=== PATIENT | female | born 1960 | race Caucasian/White ===

== ENCOUNTER 2021-06-23 18:20 | Emergency (ER) | payer OTHER ==
[2021-06-23 19:06] VITALS: TEMP 98.2
--- NOTE | 2021-06-23 19:40 | XR ---
EXAMINATION TYPE: XR chest 2V DATE OF EXAM: 06/23/2021 COMPARISON: NONE HISTORY: Headache and dizziness TECHNIQUE: Frontal and lateral views of the chest are obtained. FINDINGS: There is no focal air space opacity, pleural effusion, or pneumothorax seen. The cardiac silhouette size is within normal limits. The osseous structures are intact. IMPRESSION: No acute cardiopulmonary process.
[2021-06-23 20:58] LABS: INR 1.1 (<1.2); Prothrombin Time 11.3 sec (9.0-12.0)
[2021-06-23 21:00] LABS: Basophils % (A) 1 %; Eosinophils % (A) 0 %; HCT 40.5 % (34.0-46.0); HGB 13.9 gm/dL (11.4-16.0); Lymphocytes # (A) 0.9 k/uL (1.0-4.8); Lymphocytes % (A) 27 %; MCH 34.7 pg (25.0-35.0); MCHC 34.3 g/dL (31.0-37.0); MCV 101.2 fL (80.0-100.0); Macrocytosis Slight; Mean Platelet Volume 8.1; Monocytes # (A) 0.2 k/uL (0-1.0); Monocytes % (A) 6 %; Neutrophils # (A) 2.1 k/uL (1.3-7.7); Neutrophils % (A) 64 %; RBC 4.01 m/uL (3.80-5.40); RDW 14.1 % (11.5-15.5); WBC 3.3 k/uL (3.8-10.6)
[2021-06-23 21:05] LABS: ALT 43 U/L (4-34); AST 54 U/L (14-36); African American GFR (CKD) >90 (>60 ml/min/1.73 sqM); Albumin 4.6 g/dL (3.5-5.0); Alkaline Phosphatase 50 U/L (38-126); Anion Gap 13 mmol/L; Blood Urea Nitrogen 10 mg/dL (7-17); Calcium 9.3 mg/dL (8.4-10.2); Carbon Dioxide 23 mmol/L (22-30); Chloride 101 mmol/L (98-107); Glucose 109 mg/dL (74-99); Non-African American GFR(CKD) >90 (>60 ml/min/1.73 sqM); Potassium 3.7 mmol/L (3.5-5.1); Sodium 137 mmol/L (137-145); Total Bilirubin 2.1 mg/dL (0.2-1.3); Total Protein 8.2 g/dL (6.3-8.2)
--- NOTE | 2021-06-23 21:10 | ED ---
General Adult HPI - General Chief complaint: Dizziness Stated complaint: Light headed, dizziness, hypertension Time Seen by Provider: 06/23/21 19:51 Source: patient Mode of arrival: wheelchair Limitations: no limitations - History of Present Illness Initial comments: Patient presents to the ED (patient states that she got a ride here today) stating that she has felt dizzy and lightheaded since yesterday. Patient states that her symptoms began as she was walking out of the auditorium from her granddaughter's graduation. Patient states that she became "weak and shaky" at that time. Patient states that her symptoms improved by the time she went to bed, but she states that she has felt dizzy at times today as well. Patient states that her dizziness is worse with "motion". Patient also states that she has a mild headache at the top of her head. Patient denies trauma or injury, LOC, fever or chills, focal numbness/weakness/neuro deficit, visual changes, speech difficulty, neck pain or stiffness, chest pain or pressure, dyspnea, cough or cold symptoms, palpitations, syncope, abdominal pain, nausea/vomiting/diarrhea, bloody or melanotic stool, dysuria or urinary symptoms, leg or calf swelling or pain, or any other symptoms or complaints. - Related Data Allergies Allergy/AdvReac Type Severity Reaction Status Date / Time lisinopril AdvReac Nausea Verified 06/23/21 19:06 Review of Systems ROS Statement: Those systems with pertinent positive or pertinent negative responses have been documented in the HPI. ROS Other: All systems not noted in ROS Statement are negative. Past Medical History Additional Past Medical History / Comment(s): History of alcoholism General Exam Limitations: no limitations General appearance: alert, in no apparent distress Head exam: Present: atraumatic, normocephalic Eye exam: Present: normal appearance, PERRL, EOMI. Absent: nystagmus ENT exam: Present: mucous membranes moist, TM's normal bilaterally Neck exam: Present: other (Trachea is in midline). Absent: tenderness, meningismus Respiratory exam: Present: normal lung sounds bilaterally. Absent: respiratory distress, wheezes, rales, rhonchi, stridor Cardiovascular Exam: Present: regular rate, normal rhythm, normal heart sounds, other (Normal radial pulses bilaterally) GI/Abdominal exam: Present: soft. Absent: distended, tenderness, guarding Extremities exam: Absent: tenderness, pedal edema, calf tenderness Neurological exam: Present: alert, oriented X3, CN II-XII intact. Absent: motor sensory deficit Psychiatric exam: Present: normal affect, normal mood Skin exam: Present: warm, dry, intact, normal color Course Vital Signs 06/23/21 06/23/21 06/23/21 19:01 20:24 21:03 Temperature 98.2 F Pulse Rate 94 98 90 Respiratory 16 18 18 Rate Blood Pressure 164/85 177/108 168/109 O2 Sat by Pulse 100 97 99 Oximetry 06/23/21 06/23/21 06/23/21 22:00 22:42 23:45 Temperature Pulse Rate 96 87 85 Respiratory 18 18 16 Rate Blood Pressure 167/104 176/98 174/88 O2 Sat by Pulse 99 98 95 Oximetry - Reevaluation(s) Reevaluation #1: 06/23/21 23:47 Patient states that her dizziness has now improved, and she was able to ambulate in the ED without any difficulty. Patient and son are aware the patient's test results, and patient feels comfortable being discharged home with her son at this time. Patient was counseled about dizziness and elevated blood pressure. Patient was instructed to follow up closely with her primary care provider. Patient was clearly explained return and follow-up instructions, and she was instructed to have a low threshold for return to the emergency department should her symptoms worsen. Patient feels comfortable with this plan. EKG Findings - EKG Comments: EKG Findings:: Normal sinus rhythm, occasional PVCs, occasional supraventricular premature complexes, ventricular rate of 97 bpm, normal [place] and QRS intervals, normal QT interval, anterior T-wave abnormality Medical Decision Making - Medical Decision Making Patient denies having any chest pain, dyspnea or palpitations, and her troponin is negative. Other than mildly elevated LFTs (patient states that she has a history of alcoholism), the patient's labs are fairly unremarkable. Patient's chest x-ray and head CT are also fairly unremarkable. Patient has been ambulatory in the ED without difficulty. Patient's blood pressure has been elevated while in the ED, which perhaps may be the etiology of her symptoms. Patient was instructed to, and agrees to, follow-up closely with a primary care provider for further evaluation and management of her blood pressure. I do not suspect an emergent medical condition at this time. Will discharge patient home with her son at this time. - Lab Data Result diagrams: 06/23/21 20:26 06/23/21 20:26 Lab Results 06/23/21 06/23/21 06/23/21 Range/Units 20:26 20:26 20:26 WBC 3.3 L (3.8-10.6) k/uL RBC 4.01 (3.80-5.40) m/uL Hgb 13.9 (11.4-16.0) gm/dL Hct 40.5 (34.0-46.0) % MCV 101.2 H (80.0-100.0) fL MCH 34.7 (25.0-35.0) pg MCHC 34.3 (31.0-37.0) g/dL RDW 14.1 (11.5-15.5) % Plt Count 95 L (150-450) k/uL MPV 8.1 Neutrophils % 64 % Lymphocytes % 27 % Monocytes % 6 % Eosinophils % 0 % Basophils % 1 % Neutrophils # 2.1 (1.3-7.7) k/uL Lymphocytes # 0.9 L (1.0-4.8) k/uL Monocytes # 0.2 (0-1.0) k/uL Eosinophils # 0.0 (0-0.7) k/uL Basophils # 0.0 (0-0.2) k/uL Manual Slide Review Performed Macrocytosis Slight PT 11.3 (9.0-12.0) sec INR 1.1 (<1.2) Sodium 137 (137-145) mmol/L Potassium 3.7 (3.5-5.1) mmol/L Chloride 101 (98-107) mmol/L Carbon Dioxide 23 (22-30) mmol/L Anion Gap 13 mmol/L BUN 10 (7-17) mg/dL Creatinine 0.64 (0.52-1.04) mg/dL Est GFR (CKD-EPI)AfAm >90 (>60 ml/min/1.73 sqM) Est GFR (CKD-EPI)NonAf >90 (>60 ml/min/1.73 sqM) Glucose 109 H (74-99) mg/dL Calcium 9.3 (8.4-10.2) mg/dL Total Bilirubin 2.1 H (0.2-1.3) mg/dL AST 54 H (14-36) U/L ALT 43 H (4-34) U/L Alkaline Phosphatase 50 (38-126) U/L Troponin I (0.000-0.034) ng/mL Total Protein 8.2 (6.3-8.2) g/dL Albumin 4.6 (3.5-5.0) g/dL 06/23/21 Range/Units 20:26 WBC (3.8-10.6) k/uL RBC (3.80-5.40) m/uL Hgb (11.4-16.0) gm/dL Hct (34.0-46.0) % MCV (80.0-100.0) fL MCH (25.0-35.0) pg MCHC (31.0-37.0) g/dL RDW (11.5-15.5) % Plt Count (150-450) k/uL MPV Neutrophils % % Lymphocytes % % Monocytes % % Eosinophils % % Basophils % % Neutrophils # (1.3-7.7) k/uL Lymphocytes # (1.0-4.8) k/uL Monocytes # (0-1.0) k/uL Eosinophils # (0-0.7) k/uL Basophils # (0-0.2) k/uL Manual Slide Review Macrocytosis PT (9.0-12.0) sec INR (<1.2) Sodium (137-145) mmol/L Potassium (3.5-5.1) mmol/L Chloride (98-107) mmol/L Carbon Dioxide (22-30) mmol/L Anion Gap mmol/L BUN (7-17) mg/dL Creatinine (0.52-1.04) mg/dL Est GFR (CKD-EPI)AfAm (>60 ml/min/1.73 sqM) Est GFR (CKD-EPI)NonAf (>60 ml/min/1.73 sqM) Glucose (74-99) mg/dL Calcium (8.4-10.2) mg/dL Total Bilirubin (0.2-1.3) mg/dL AST (14-36) U/L ALT (4-34) U/L Alkaline Phosphatase (38-126) U/L Troponin I <0.012 (0.000-0.034) ng/mL Total Protein (6.3-8.2) g/dL Albumin (3.5-5.0) g/dL - Radiology Data Chest x-ray: No acute cardiopulmonary process. Noncontrast head CT: No acute intracranial hemorrhage or midline shift. There is mild diffuse cerebral atrophy and acute right sphenoid sinus disease noted. Disposition Clinical Impression: Dizziness Disposition: HOME SELF-CARE Condition: Stable Instructions (If sedation given, give patient instructions): Dizziness (ED) Additional Instructions: Return to the ER immediately should you develop new or worsening pain, increased dizziness, fainting, shortness of breath, a fever, numbness or weakness, vomiting, or new or worsening symptoms. Follow up closely with your primary care provider. Is patient prescribed a controlled substance at d/c from ED?: No Referrals: Bi Reid MD [Primary Care Provider] - 1-2 days Time of Disposition: 23:52
--- NOTE | 2021-06-23 21:35 | CT ---
EXAMINATION TYPE: CT brain wo con DATE OF EXAM: 06/23/2021 HISTORY: Hypertension, headaches, and dizziness. CT DLP: 1158.4 mGycm. Automated Exposure Control for Dose Reduction was Utilized. TECHNIQUE: CT scan of the head is performed without contrast. COMPARISON: None. FINDINGS: There is no acute intracranial hemorrhage or midline shift identified. There is mild diff use ventricular and sulcal prominence consistent with diffuse age-related cerebral atrophy. Lei-whit e matter differentiation fairly well maintained. Patchy cerumen in the deep left external auditory ca nal. Dependent fluid filling the right sphenoid sinus otherwise the paranasal sinuses are clear. The globes are intact bilaterally. IMPRESSION: No acute intracranial hemorrhage or midline shift. There is mild diffuse cerebral atrop hy and acute right sphenoid sinus disease noted.
[2021-06-23] MEDS ORDERED: SODIUM CHLORIDE 0.9% 1,000 ML IV ONE (21:48)
[2021-06-23] MEDS ORDERED: MECLIZINE 12.5 MG TAB PO STA (21:49)
[2021-06-23] MEDS ORDERED: diphenhydrAMINE 50 MG/ML 1 ML VIAL IVP STA (21:49)
[2021-06-23 22:01] LABS: Platelet Count 95 k/uL (150-450)
[2021-06-23 23:46] VITALS: BP 174/88; PULSE 85; RESP 16
== END 2021-06-24 00:16 | disposition home or self-care (01) ==
LOC: EC 18:20
DX: R42 Dizziness and giddiness (principal); Z88.8 Allergy status to other drugs, medicaments and biological substances
CPT/HCPCS: 36415; 93005; 80053; 84484; 85025; 85610; 71046; 70450; 99284; 96374; J1200

== ENCOUNTER 2023-01-02 05:42 | Day surgery (SDC) | payer OTHER ==
--- NOTE | 2023-01-01 08:45 | P.HPOR ---
History of Present Illness H&P Date: 01/01/23 Chief Complaint: Left shoulder pain The patient is a 62-year-old female who presents with left shoulder pain after an injury on 11/23/2022. She notes she passed out fell on her left shoulder. Initially she was seen in the emergency room was placed in a sling. She denies previous injury. She's having pain with any attempted use of the left arm. Review of Systems Negative except as in HPI Past Medical History Past Medical History: COPD, Hypertension, Thyroid Disorder Additional Past Medical History / Comment(s): 12/06/22 SYNCOPAL EPISODE , FELL AND BROKE HER LEFT SHOULDER. History of alcoholism. History of Any Multi-Drug Resistant Organisms: None Reported Additional Past Surgical History / Comment(s): CATARACT LEFT 11/27/22. Past Anesthesia/Blood Transfusion Reactions: No Reported Reaction Additional Past Anesthesia/Blood Transfusion Reaction / Comment(s): NO GENERAL ANESTHESIA. Past Psychological History: Depression Smoking Status: Current every day smoker Past Alcohol Use History: None Reported Additional Past Alcohol Use History / Comment(s): SMOKED SINCE TEEN, .5 TO 1PPD. Past Drug Use History: None Reported Additional Drug Use History / Comment(s): CBD. - Past Family History Mother Family Medical History: No Reported History Medications and Allergies Home Medications Medication Instructions Recorded Confirmed Type Albuterol Sulfate [Ventolin HFA] 1 puff IN DIRECTED PRN 12/29/22 12/29/22 History Aspirin [Adult Low Dose Aspirin EC] 81 mg PO DAILY 12/29/22 12/29/22 History Fluticasone Propion/Salmeterol 1 puff INHALATION BID 12/29/22 12/29/22 History [Advair 250-50 Diskus] Ibuprofen 800 mg PO BID PRN 12/29/22 12/29/22 History Levothyroxine Sodium 100 mcg PO QAM 12/29/22 12/29/22 History Losartan Potassium 100 mg PO QAM 12/29/22 12/29/22 History Magnesium 400 mg PO QAM 12/29/22 12/29/22 History Metoprolol Tartrate 25 mg PO BID 12/29/22 12/29/22 History Montelukast Sodium 10 mg PO HS 12/29/22 12/29/22 History Nicotine 21Mg/24Hr Patch [Habitrol] 1 patch TOPICAL Q24H 12/29/22 12/29/22 History Tiotropium 18 Mcg/Puff [Spiriva] 1 puff INHALATION QAM 12/29/22 12/29/22 History buPROPion HCL [buPROPion HCL Xl] 150 mg PO QAM 12/29/22 12/29/22 History traMADol HCL 50 mg PO BID 12/29/22 12/29/22 History Allergies Allergy/AdvReac Type Severity Reaction Status Date / Time Fish Containing Products Allergy Rash/Hives, Verified 12/29/22 15:17 [Fish] SWELLING lisinopril AdvReac Nausea Verified 06/23/21 19:06 Physical Examination - Shoulder left Appearance: ecchymosis, swelling Tenderness with palpation: anterior Pain: other (Pain with any attempted range of motion) Results The patient is a well-developed well-nourished female approximately 5 foot 10, 185 pounds of mesomorphic habitus. HEENT exam is nonfocal, neck supple. She has significant anterior swelling and ecchymosis about the left shoulder. She is nontender about the acromioclavicular and sternoclavicular joints. She's tender over the proximal humerus. She has pain with any attempted range of motion of the left shoulder. She is not in a month left elbow and wrist. Her distal neurovascular appears intact in the left upper extremity. - Diagnostic results Shoulder x-ray: image reviewed (2 views of the left shoulder obtaining in the office show a displaced proximal humerus fracture with significant comminution.) Assessment and Plan Assessment: Left displaced three-part proximal humerus fracture Plan: I talked the patient at length regarding her condition along with treatment options. After thorough discussion she opted to proceed with surgery. Surgical options to include attempted open reduction and internal fixation with possible bone grafting versus reverse total shoulder arthroplasty were discussed. She opted to proceed with a left reverse total shoulder arthroplasty. Risks and benefits were discussed at length in layman's terms. We will likely keep the patient for 23 hold postoperatively.
[~2023-01-02 05:42] MED LIST: ACETAMINOPHEN TAB 500 MG TAB PO PRN; MELOXICAM 7.5 MG TAB PO PRN; TRANEXAMIC 1,000 MG/100ML-NACL 1,000 MG in SALINE 1 100ML.BAG IVPB PRN
[2023-01-02] MEDS ORDERED: ONDANSETRON 4 MG/2 ML VIAL IVP ONE (06:06)
[2023-01-02] MEDS ORDERED: DEXAMETHASONE SOD PHOSPHATE 4 MG/ML 1 ML VIAL IV ONE (06:06)
[2023-01-02] MEDS ORDERED: SCOPOLAMINE 1 MG/72 HR PATCH TRANSDERM ONE (06:06)
[2023-01-02] MEDS: LACTATED RINGERS 1,000 ML IV SCH (06:59)
[2023-01-02] MEDS ORDERED: HYDROmorphone 0.5 MG/0.5 ML SYRINGE IVP PRN ×2 (07:00→09:41)
[2023-01-02] MEDS ORDERED: MIDAZOLAM 2 MG/2 ML VIAL IV PRN (07:00)
[2023-01-02] MEDS ORDERED: MIDAZOLAM 2 MG/2 ML VIAL IVP ONE (07:05)
[2023-01-02] MEDS ORDERED: fentaNYL (PF) 50 MCG/ML 2 ML AMP IVP ONE (07:05)
--- NOTE | 2023-01-02 07:21 | P.ANPRN ---
Procedure Note - Anesthesia - Nerve Block Performed Left Interscalene Single Time Out Performed: Yes Date of Procedure: 01/02/23 Procedure Start Time: 07:04 Procedure Stop Time: 07:10 Location of Patient: PreOp Indication: Acute Post-Operative Pain, Requested by Surgeon Sedation Type: Sedate with meaningful contact maintained Preparation: Sterile Prep Position: Supine Needle Types: Pajunk Needle Gauge: 21 Ultrasound used to visualize needle placement: Yes Ultrasound used to observe medication spread: Yes Injectate: 0.5% Ropivacaine (see comment for volume) (15 ml + 15 ml NS + 4 mg Dexamethasone) Blood Aspirated: No Pain Paresthesia on Injection Noted: No Resistance on Injection: Normal Image Stored and Saved: Yes Events: Uneventful and Well Tolerated
[2023-01-02] MEDS ORDERED: PROPOFOL 10 MG/ML 20 ML VIAL IV ONE (07:31)
[2023-01-02] MEDS ORDERED: SUCCINYLCHOLINE CHLORIDE 200 MG/10 ML VIAL IV ONE (07:31)
[2023-01-02] MEDS ORDERED: NEOSTIGMINE 1 MG/ML 10 ML VIAL ONE (07:31)
[2023-01-02] MEDS ORDERED: DEXAMETHASONE SOD PHOSPHATE 4 MG/ML 1 ML VIAL ONE (07:31)
[2023-01-02] MEDS ORDERED: ROPIVACAINE 5 MG/ML 30 ML VIAL ONE (07:31)
[2023-01-02] MEDS ORDERED: MIDAZOLAM 2 MG/2 ML VIAL ONE (07:31)
[2023-01-02] MEDS ORDERED: GLYCOPYRROLATE 0.2 MG/ML 2 ML VIAL ONE (07:31)
[2023-01-02] MEDS ORDERED: ROCURONIUM 10 MG/ML (5 ML VIAL) IV ONE (07:31)
[2023-01-02] MEDS ORDERED: fentaNYL (PF) 50 MCG/ML 2 ML AMP ONE (07:31)
[2023-01-02] MEDS ORDERED: LIDOCAINE 4% LTA KIT (4 ML) TOPICAL ONE (07:31)
[2023-01-02] MEDS ORDERED: ePHEDrine 50 MG/ML 1 ML VIAL ONE (07:31)
[2023-01-02] MEDS ORDERED: PHENYLEPHRINE 10 MG/ML 5 ML VIAL ONE (07:31)
[2023-01-02] MEDS ORDERED: LIDOCAINE 1% INJ 10MG/ML (20 ML MDV) ONE (07:31)
[2023-01-02] MEDS ORDERED: ceFAZolin 1,000 MG in SODIUM CHLORIDE 0.9% 1,000 ML IRRIGATION ONE (08:12)
[2023-01-02] MEDS ORDERED: SENNOSIDES-DOCUSATE SODIUM 1 EACH TAB PO PRN (09:41)
[2023-01-02] MEDS ORDERED: HYDROmorphone 1 MG/ML 1 ML SYRINGE IVP PRN (09:41)
[2023-01-02] MEDS ORDERED: HYDROcodone/APAP 5-325MG 1 EACH TAB PO PRN (09:41)
[2023-01-02] MEDS ORDERED: hydrOXYzine pamoate 25 MG CAP PO PRN (09:41)
--- NOTE | 2023-01-02 10:00 | P.OP ---
Date of Procedure: 01/02/23 Preoperative Diagnosis: Displaced/comminuted left 3 part proximal humerus fracture Postoperative Diagnosis: Same Procedure(s) Performed: Left reverse total shoulder arthroplasty Implants: Depuy Delta Xtend size 10/long stem/size 1 cemented humeral stem, 38+9 articular surface, 38 standard glenosphere, standard base plate. Anesthesia: sapphire MEEHAN Surgeon: Matt Gonzalez Pathology Laboratory Director #1: Won Rausch Estimated Blood Loss (ml): 100 Pathology: none sent Condition: stable Disposition: PACU Indications for Procedure: The patient's a 62-year-old female who presents after falling injuring her left shoulder. She was noted have a displaced/comminuted left 3 part proximal humerus fracture. A discussion of the risks and benefits of operative intervention versus attempted conservative measures with me with the patient. She opted to proceed with surgery. Operative options to include attempted open reduction and internal fixation versus reverse total shoulder arthroplasty were discussed. She opted to proceed with reverse total shoulder arthroplasty. Specific risks of surgery to include infection, neurovascular injury, development of blood clots, possible nonunion, possible instability, possible component loosening/failure need for subsequent procedures was discussed. Informed consent was obtained. Operative Findings: As below Description of Procedure: The patient was brought to the operating room, and after induction of general anesthesia was placed in a beachchair position. The bony prominences were appropriately padded. The left upper extremity was prepped and draped in normal fashion. The bony outlines the coracoid process, distal clavicle, and acromion were outlined with a skin marker. A pulse centimeter deltopectoral incision was made lateral to the coracoid process. Skin was incised sharply. Subcutaneous tissues were divided bluntly. Electrocautery was used for hemostasis. The cephalic vein was identified and gently retracted laterally with the deltoid. The deltopectoral was bluntly developed. Subdeltoid adhesions were then released. The self-retaining retractor was placed. The conjoined tendon was retracted medially and the deltoid laterally. The biceps was identified. Its sheath was opened. A biceps tenotomy was performed along the remaining tendon did retract distally. The tuberosities were identified and the rotator interval was opened. The greater and lesser tuberosities were freed intact with #2 Ethibond suture. The humeral head fragment was removed. The glenoid was then exposed. An anterior and posterior retractors placed. The labrum was released from the 6-12 o'clock position. Remaining biceps was removed as well. A guidepin was placed in the inferior aspect of the glenoid with the guide slightly tilting inferior. The reamer was used down to a bleeding bony surface. The central peg hole was drilled. The standard baseplate was inserted with good purchase. Inferior, superior, and posterior locking screws the appropriate length were placed. Good purchase was obtained. The 38 mm glenosphere was inserted over a guidewire. This was fully seated. Care was taken to avoid any soft tissue interposition. Attention was then paid towards preparing the proximal humerus. The canal was reamed by hand up to a size 10. A trial size 10 long stem was placed at the appropriate height utiliz ing the proximal clamp. I planned on 30 of external rotation. Trial reduction was obtained with a 38 mm + pain articular surface. The shoulder was taken through range of motion. It was felt to be stable in flexion and extension with internal and external rotation. I felt there was adequate baptist of soft tissue tension judging off the conjoined tendon. The shoulder was gently dislocated. The trial components were then removed. The final size 10 long stem cemented seated and held in place with the clamp. After the cement had sufficiently hardened, a 38+9 trial articular surface was placed. The shoulder again was gently reduced and taken through range of motion. Again it was felt to be stable in all planes. The trial articular surface was removed and the final one was gently impacted. Pulsatile lavage was utilized. The greater and lesser tuberosities were then reattached to each other and the proximal humerus utilizing #2 Ethibond suture. The deltopectoral interval was closed with interrupted 2-0 Vicryl sutures. The skin was reapproximated with 3-0 subcuticular Prolene suture. Steri-Strips were applied. A sterile dressing was applied. A sling was placed. The patient was awoken from general anesthesia and transferred to recovery room in good condition. Blood loss was estimated at 100 mL. No complications were incurred. Sponge and needle counts were correct at the end the case. Won BISHOP assisted during the major components of the case to include exposure, glenoid and humeral preparation, implantation, and closure.
[2023-01-02] MEDS ORDERED: LACTATED RINGERS 1,000 ML IV ONE (10:13)
--- NOTE | 2023-01-02 10:39 | XR ---
EXAMINATION TYPE: XR shoulder limited LT DATE OF EXAM: 01/02/2023 10:30 AM INDICATION: Patient age:Female; 62 years old; Reason for study: s/p reverse left total shoulder arthroplasty; COMPARISON: Left shoulder radiograph 12/26/2022 TECHNIQUE: The left shoulder was examined in single frontal projection. FINDINGS: Postsurgical changes from reverse left total shoulder arthroplasty. Hardware appears intact with appr opriate alignment. There is surrounding soft tissue gas and edema. Adjacent osseous fragments involvi ng the left proximal humerus from prior fracture. No new fracture or dislocation. The remaining porti ons of the visualized chest are unremarkable. IMPRESSION: Postsurgical changes from a reverse left total shoulder arthroplasty. Hardware appears intact with ap propriate alignment on this single projection.
[2023-01-02 13:02] LABS: Basophils % (A) 0 %; Eosinophils % (A) 0 %; HCT 30.6 % (34.0-46.0); HGB 9.9 gm/dL (11.4-16.0); Hypochromasia Slight; Lymphocytes # (A) 0.6 k/uL (1.0-4.8); Lymphocytes % (A) 12 %; MCH 32.4 pg (25.0-35.0); MCHC 32.5 g/dL (31.0-37.0); MCV 99.7 fL (80.0-100.0); Mean Platelet Volume 8.2; Monocytes # (A) 0.1 k/uL (0-1.0); Monocytes % (A) 2 %; Neutrophils # (A) 4.5 k/uL (1.3-7.7); Neutrophils % (A) 86 %; RBC 3.07 m/uL (3.80-5.40); RDW 14.2 % (11.5-15.5); WBC 5.2 k/uL (3.8-10.6)
[2023-01-02 13:48] LABS: Platelet Count 95 k/uL (150-450)
[2023-01-02] MEDS: traMADol 50 MG TAB PO SCH ×2 (15:56→21:05)
[2023-01-02] MEDS: HYDROcodone/APAP 5-325MG 1 EACH TAB PO PRN ×2 (15:56→23:36)
[2023-01-02] MEDS: SYMBICORT 80-4.5 MCG INHALER INHALATION SCH (20:41)
[2023-01-02] MEDS ORDERED: MONTELUKAST 10 MG TAB PO SCH (21:00)
[2023-01-02] MEDS: METOPROLOL TARTRATE 25 MG TAB PO SCH (21:05)
[2023-01-03] MEDS ORDERED: LEVOTHYROXINE 100 MCG TAB PO SCH (06:30)
[2023-01-03] MEDS: LACTATED RINGERS 1,000 ML IV SCH (06:32)
[2023-01-03] MEDS: traMADol 50 MG TAB PO SCH (07:59)
[2023-01-03] MEDS: HYDROcodone/APAP 5-325MG 1 EACH TAB PO PRN ×2 (07:59→13:18)
[2023-01-03] MEDS: METOPROLOL TARTRATE 25 MG TAB PO SCH (08:00)
[2023-01-03] MEDS: IPRATROPIUM 0.5 MG/2.5 ML NEBU INHALATION SCH ×2 (08:30→11:37)
[2023-01-03] MEDS: SYMBICORT 80-4.5 MCG INHALER INHALATION SCH (08:30)
[2023-01-03 08:36] VITALS: BP 168/86; RESP 14; TEMP 98.1
[2023-01-03 08:58] VITALS: PULSE 68
[2023-01-03] MEDS ORDERED: NICOTINE 21MG/24HR PATCH TRANSDERM SCH (09:00)
[2023-01-03] MEDS ORDERED: ASPIRIN 81 MG PO SCH (09:00)
[2023-01-03] MEDS ORDERED: MAGNESIUM OXIDE 400 MG TAB PO SCH (09:00)
[2023-01-03] MEDS ORDERED: ASPIRIN 325 MG TAB PO SCH (09:00)
[2023-01-03] MEDS ORDERED: buPROPion XL 150 MG TAB.ER.24H PO SCH (09:00)
[2023-01-03] MEDS ORDERED: LOSARTAN 50 MG TAB PO SCH (09:00)
--- NOTE | 2023-01-03 10:55 | P.PN ---
Subjective Progress Note Date: 01/03/23 Principal diagnosis: Left displaced three-part proximal humerus fracture Left shoulder pain Patient seen and examined this morning. Patient is sitting up in chair with left arm in sling and elevated on pillows. She does note some swelling to the left hand, denies any numbness or tingling. Surgical dressing is CDI. Patient reports her pain is managed on current regimen and has been utilizing ice packs. She states she is comfortable with going home today. She denies any need for homecare. No acute concerns at this time. Objective - Vital Signs Vital signs: Vital Signs Temp 98.1 F 01/03/23 07:16 Pulse 68 01/03/23 08:48 Resp 14 01/03/23 07:16 BP 168/86 01/03/23 07:16 Pulse Ox 100 01/03/23 07:16 FiO2 Intake & Output 01/02/23 01/03/23 01/03/23 18:59 06:59 18:59 Intake Total 901 Output Total 100 Balance 801 Weight 81.5 kg Intake: IV 901 Output: Estimated Blood Loss 100 Other: # Voids 2 2 - Exam Inspection: Surgical incision over the left shoulder. Surgical dressing is clean dry and intact with a sling present on the left upper extremity. Sensation: Sensation is equal, symmetric, bilaterally intact throughout the upper and lower extremities Palpation: Nontender to palpation throughout the right upper and lower extremities and throughout spine exam. There is tender to palpation over the left shoulder and elbow due to surgical procedure Range of motion: Patient does have full range of motion of the right upper and lower extremities on exam. Patient has limited range of motion to the left shoulder and left elbow due to pain and stiffness secondary to surgical procedure. Motor: 5/5 in all major motor groups in the right upper and lower extremities. 4-/5 in left shoulder abduction and adduction, 4-/5 in left elbow flexion and extension due to pain and stiffness, 4+/5 in left engineering mgr Special tests: Negative Homans bilaterally. Negative Sadiq bilaterally. Negative clonus bilaterally. Neurovascular: Radial pulse intact, 2+ bilaterally. Cap refill under 3 seconds in digits upper extremities. - Labs CBC & Chem 7: 01/02/23 12:09 Labs: Abnormal Lab Results - Last 24 Hours (Table) 01/02/23 Range/Units 12:09 RBC 3.07 L (3.80-5.40) m/uL Hgb 9.9 L (11.4-16.0) gm/dL Hct 30.6 L (34.0-46.0) % Plt Count 95 L (150-450) k/uL Lymphocytes # 0.6 L (1.0-4.8) k/uL Assessment and Plan Assessment: Postop day 1: Left reverse total shoulder arthroplasty Left displaced three-part proximal humerus fracture Left shoulder pain Plan: -Appreciate apartment leasing consultant and team management. -Activity: Ambulate QID, OOB all meals, up and about. -Daily PT/OT, increase ambulation strength and balance. -Sling to Left upper extremity -Pain control: Adequate at this time -Meds: reviewed -GI ppx: Echo hammond -Encourage IS 10x/hr -Dispo: Anticipate discharge home today *I reviewed and discussed this case with my attending Dr. Gonzalez, whom has reviewed this chart and films and is in agreement with assessment and plan of care as outlined above. I have personally seen and examined the patient, performed the documentation and the assessment and plan as written. Number of minutes spent on the visit: 20m.
--- NOTE | 2023-01-03 14:00 | P.DS ---
Providers Date of admission: 01/02/23 Expected date of discharge: 01/03/23 Attending physician: Matt Gonzalez Consults: 01/02/23 09:45 Consult Physician Routine Consulting Provider: Bi Reid Reason/Comments: Medical Management s/p reverse left total shoulder arthroplasty Do you want consulting provider notified?: Yes Primary care physician: Bi Reid [facility] Course: Hospital Course: The patient was evaluated preoperatively and found to have the diagnosis of Left shoulder fracture They underwent appropriate preoperative care and were willing to undergo the intended procedure. They underwent a successful Reverse left total shoulder arthroplasty were recovered appropriately and sent to the floor. While on the floor they worked with physical therapy, occupational therapy and nursing to enhance their recovery experience. Their pain was well controlled through their stay and they were started on appropriate medications, DVT ppx modalities, activity and dietary needs. Daily labs were monitored closely, and transfusions were only used when necessary. Medicine as well as other consulting services have made their input and have helped with our team approach and multidisciplinary care. PT milestones have been met and passed and they have made the recommendation of home for this patient and treating providers agree with this care path. The patient will be discharged home with appropriate medications, instructions and follow-up information and in stable condition. Patient Condition at Discharge: Good Plan - Discharge Summary Discharge Rx Participant: No New Discharge Prescriptions: New Aspirin 325 mg PO DAILY #28 tab Sennosides/Docusate Sodium [Senna Plus 8.6-50 mg Softgel] 1 each PO DAILY #20 capsule HYDROcodone/APAP 5-325MG [Gwynn 5-325] 1 tab PO Q6HR PRN #28 tab PRN Reason: Pain hydrOXYzine pamoate [Vistaril] 50 mg PO Q6HR PRN #30 capsule PRN Reason: Anxiety No Action Losartan Potassium 100 mg PO QAM Aspirin [Adult Low Dose Aspirin EC] 81 mg PO DAILY Albuterol Sulfate [Ventolin HFA] 1 puff IN DIRECTED PRN PRN Reason: Shortness Of Breath Or Wheezing Ibuprofen 800 mg PO BID PRN PRN Reason: Pain Magnesium 400 mg PO QAM buPROPion HCL [buPROPion HCL Xl] 150 mg PO QAM Montelukast Sodium 10 mg PO HS traMADol HCL 50 mg PO BID Fluticasone Propion/Salmeterol [Advair 250-50 Diskus] 1 puff INHALATION BID Tiotropium 18 Mcg/Puff [Spiriva] 1 puff INHALATION QAM Metoprolol Tartrate 25 mg PO BID Levothyroxine Sodium 100 mcg PO QAM Nicotine 21Mg/24Hr Patch [Habitrol] 1 patch TOPICAL Q24H Discharge Medication List Albuterol Sulfate [Ventolin HFA] 1 puff IN DIRECTED PRN 12/29/22 [History] Aspirin [Adult Low Dose Aspirin EC] 81 mg PO DAILY 12/29/22 [History] Fluticasone Propion/Salmeterol [Advair 250-50 Diskus] 1 puff INHALATION BID 12/29/22 [History] Ibuprofen 800 mg PO BID PRN 12/29/22 [History] Levothyroxine Sodium 100 mcg PO QAM 12/29/22 [History] Losartan Potassium 100 mg PO QAM 12/29/22 [History] Magnesium 400 mg PO QAM 12/29/22 [History] Metoprolol Tartrate 25 mg PO BID 12/29/22 [History] Montelukast Sodium 10 mg PO HS 12/29/22 [History] Nicotine 21Mg/24Hr Patch [Habitrol] 1 patch TOPICAL Q24H 12/29/22 [History] Tiotropium 18 Mcg/Puff [Spiriva] 1 puff INHALATION QAM 12/29/22 [History] buPROPion HCL [buPROPion HCL Xl] 150 mg PO QAM 12/29/22 [History] traMADol HCL 50 mg PO BID 12/29/22 [History] Aspirin 325 mg PO DAILY #28 tab 01/02/23 [Rx] Sennosides/Docusate Sodium [Senna Plus 8.6-50 mg Softgel] 1 each PO DAILY #20 capsule 01/02/23 [Rx] HYDROcodone/APAP 5-325MG [Gwynn 5-325] 1 tab PO Q6HR PRN #28 tab 01/03/23 [Rx] hydrOXYzine pamoate [Vistaril] 50 mg PO Q6HR PRN #30 capsule 01/03/23 [Rx] Follow up Appointment(s)/Referral(s): Won Rausch PAC [PHYSICIAN [employer]ATION [employer]] - 2 Weeks (Please call office Thursday to schedule appointment ) Bi Reid MD [Primary Care Provider] - 1 Week (Please call Thursday to schedule appointment) Patient Instructions/Handouts: Joint Replacement Surgery (DC) Activity/Diet/Wound Care/Special Instructions: Orthopedic Discharge Instructions: 1. Wound care and infection precautions, keep incision dry and covered while showering, no lotions, creams, moisturizers. No soaking, pools, hot tubs. Do not scrub over incision. 2. Nonweightbearing left upper extremity until follow-up 3. Ice when necessary. Do not exceed 20 minutes per hour with ice pack. 4. Utilize sling to left upper extremity until follow-up appointment in office 5. Pain meds and anticoagulants per prescription. 6. Pain medication has potential to cause constipation. Increase oral fluid and fiber intake. Contact primary care provider if you have not had a bowel movement within 48 hours after discharge. 7. No anti-inflammatory medication until discussed at first post operative visit, this including Motrin, Aleve, Mobic, Diclofenac, Aspirin. 8. Follow up in office at 2 weeks postop with Jose L Bentley PA-C / Won Rausch PA-C 9. Follow up with your primary care doctor 7-10 days after discharge. 10. Contact [facility] with any questions, . Keep incision clean, dry, intact. maintain sling to left upper extremity at all times. okay to remove only to shower. Discharge Disposition: HOME SELF-CARE
--- NOTE | 2023-01-03 17:13 | PN ---
PROGRESS NOTE Luh Macdonald is in hospital for a total shoulder repair. Currently, she is doing well, sitting up in a chair, arm in a sling, elevated pillows, swelling in the left hand. Comfortable going home today. Denies any home care. Home medications reviewed were restarted in the hospital. Physical exam as mentioned above. Vital signs were reviewed. Postoperative left reverse total shoulder arthroplasty, displaced proximal humeral fracture. Home medications were continued. Stable for discharge. MMODL / IJN: [id number] /
== END 2023-01-03 13:59 | disposition home or self-care (01) ==
LOC: OR 05:42 → 4SSUR 09:42 → OR 01-03 13:59
PROVIDERS: ATTEND Orthopaedic Surgery
DX: S42.202A Unspecified fracture of upper end of left humerus, initial encounter for closed fracture (principal); J44.9 Chronic obstructive pulmonary disease, unspecified; I10 Essential (primary) hypertension; E07.9 Disorder of thyroid, unspecified; Z98.42 Cataract extraction status, left eye; F32.A Depression, unspecified; F17.210 Nicotine dependence, cigarettes, uncomplicated; Z79.51 Long term (current) use of inhaled steroids; Z79.890 Hormone replacement therapy; Z79.82 Long term (current) use of aspirin; Z79.1 Long term (current) use of non-steroidal anti-inflammatories (NSAID); Z79.899 Other long term (current) drug therapy; Z88.8 Allergy status to other drugs, medicaments and biological substances; Z91.013 Allergy to seafood; Z96.612 Presence of left artificial shoulder joint; X58.XXXA Exposure to other specified factors, initial encounter
CPT/HCPCS: 23472; 94640 ×3; 85025; 73020; 64415; S4990; J2250; J1100; J0690 ×2; J2405; J3010

== ENCOUNTER → 2023-11-26 | Outpatient (CLI) | payer MEDICARE, OTHER ==
--- NOTE | 2023-11-27 07:51 | MR ---
EXAMINATION TYPE: MR knee RT wo con DATE OF EXAM: 11/26/2023 COMPARISON: NONE HISTORY: Rt knee pain and swelling for 4 to 5 months TECHNIQUE: Multiplanar, multisequence images of the knee is performed without IV contrast. FINDINGS: MEDIAL MENISCUS: Horizontal signal posterior horn does not extend to articular surface. LATERAL MENISCUS: Horizontal signal anterior horn truncated appearance extends to superior articular surface sagittal image 26. CRUCIATE LIGAMENTS: The anterior and posterior cruciate ligaments are intact and unremarkable. COLLATERAL LIGAMENTS: The medial collateral ligament and lateral collateral ligament complex are inta ct and unremarkable. EXTENSOR MECHANISM: Visualized distal quadriceps tendons are intact. Patellar tendon has a wavy cont our with focus of intermediate signal present sagittal image 22 EFFUSION: Large size suprapatellar joint effusion. POPLITEAL CYST: No popliteal/genao cyst. TRICOMPARTMENT SPACES: Tricompartment joint space loss most prominent patellofemoral compartment wher e moderate narrowing is seen inferiorly. Mild to moderate tricompartment spurring. CARTILAGE: Significant chondromalacia patella with areas of full-thickness cartilaginous loss along t he posterior patellar pole. Some cartilaginous loss lateral tibiofemoral space. BONE MARROW SIGNAL: There are areas of heterogeneous increased T2 signal along the posterior patellar pole. Some heterogeneous increased T2 signal involving posterior aspect of the distal lateral femora l condyle. OTHER: No additional significant abnormality is appreciated. IMPRESSION: 1. Large-sized suprapatellar joint effusion. 2. Full-thickness tear anterior horn lateral meniscus. 3. Suspected intrasubstance tear posterior horn medial meniscus. 4. Tendinosis of the patellar tendon. 5. Tricompartment degenerative changes most prominent patellofemoral and lateral tibiofemoral compart ments as detailed above. [facility], , 11/27/2023 7:48 AM
== END | disposition home or self-care (01) ==
LOC: RADMRIMAIN 11:48
PROVIDERS: ATTEND Family Medicine
DX: S83.241A Other tear of medial meniscus, current injury, right knee, initial encounter (principal); M17.11 Unilateral primary osteoarthritis, right knee